=== PATIENT | male | born 1960 | race Caucasian/White ===

== ENCOUNTER 2017-02-16 13:18 | Emergency (ER) | payer BC ==
[2017-02-16 13:43] VITALS: BP 122/89
--- NOTE | 2017-02-16 14:43 | UC ---
Lower Extremity/Ankle HPI - HPI Summary HPI Summary: Pt noticed feeling achy in muscles and joints and also developed a PATEL all yesterday. Was bitten by a tick approx 2 weeks ago in L groin, now there's a red area there. - History of Current Complaint Chief Complaint: UCGeneralIllness Stated Complaint: BODY ACHES Time Seen by Provider: 02/16/17 14:26 Hx Obtained From: Patient Onset/Duration: Gradual Onset, Lasting Days Severity Initially: Mild Severity Currently: Mild Aggravating Factor(s): Nothing Able to Bear Weight: Yes - Allergies/Home Medications Allergies/Adverse Reactions: Allergies Allergy/AdvReac Type Severity Reaction Status Date / Time No Known Allergies Allergy Verified 07/12/16 13:41 PMH/Surg Hx/FS Hx/Imm Hx Previously Healthy: Yes - Surgical History Surgical History: Yes Surgery Procedure, Year, and Place: back - Family History Known Family History: Negative: Blood Disorder - Social History Alcohol Use: Occasionally Substance Use Type: None Smoking Status (MU): Never Smoked Tobacco Review of Systems Constitutional: Negative Skin: Rash Eyes: Negative ENT: Negative Respiratory: Negative Cardiovascular: Negative Gastrointestinal: Negative Genitourinary: Negative Motor: Negative Neurovascular: Negative Musculoskeletal: Arthralgia, Myalgia Neurological: Negative Psychological: Negative All Other Systems Reviewed And Are Negative: Yes Physical Exam Triage Information Reviewed: Yes Appearance: Well-Appearing, No Pain Distress, Well-Nourished Vital Signs: Initial Vital Signs Temp 99.0 F 02/16/17 13:40 Pulse 65 02/16/17 13:40 Resp 18 02/16/17 13:40 BP 122/89 02/16/17 13:40 Pulse Ox 100 02/16/17 13:40 Vital Signs Reviewed: Yes Eye Exam: Normal Eyes: Positive: Conjunctiva Clear ENT Exam: Normal ENT: Positive: Normal ENT inspection, Hearing grossly normal, TMs normal Dental Exam: Normal Neck exam: Normal Neck: Positive: Supple, Nontender Respiratory Exam: Normal Respiratory: Positive: Chest non-tender, Lungs clear, Normal breath sounds, No respiratory distress, No accessory muscle use Cardiovascular Exam: Normal Cardiovascular: Positive: RRR, No Murmur Musculoskeletal Exam: Normal Neurological Exam: Normal Psychological Exam: Normal Skin Exam: Other - site of tick bite L groin 8cm x 3cm oval erythematous area that follows the skin crease. Small regional LAD as well. Lower Extremity Course/Dx - Differential Dx/Diagnosis Provider Diagnoses: early localized lyme disease Discharge - Discharge Plan Condition: Stable Disposition: HOME Prescriptions: DOXYcycline CAP(*) [DOXYcycline 100MG CAP(*)] 100 mg PO BID #28 cap Patient Education Materials: Lyme Disease (ED) Referrals: Abdirizak Hardin MD [Primary Care Provider] - Additional Instructions: As we discussed, you should not need any further testing or treatment, as long as your symptoms resolve and you finish your antibiotics. Please see your primary care provider if you have new symptoms or further questions.
== END 2017-02-16 14:45 | disposition home or self-care (01) ==
LOC: UCEAST 13:18
DX: A69.20 Lyme disease, unspecified (principal)
CPT/HCPCS: 99202; G0463